=== PATIENT | female | born 1950 | race Caucasian/White ===

== ENCOUNTER 2019-01-20 17:28 | Inpatient (IN) | payer MEDICARE, OTHER ==
[~2019-01-20] VITALS: Ht 165.1 cm; Wt 93.4 kg
[~2019-01-20 17:28] MED LIST: SODI62.58 IV
[2019-01-22] MEDS ORDERED: Z GUARD REMEDY PASTE 57 GM TUBE TOP PRN (18:30)
[2019-01-22] MEDS ORDERED: MAGNESIUM HYDROXIDE 30 ML LIQUID UDC PO PRN (18:30)
--- NOTE | 2019-01-22 18:45 | NUR ---
Admitted from [facility] for right hip fracture s/p Im rodding on 01/18/19. Alert, oriented x4 Maltese speaking. With tolerable pain over right hip and leg area. Not in any form of distress. Oriented to unit and therapy. Dr. Shaw requested for medication reconciliation and acknowledged. Dr. Llanos aware of admission.
[2019-01-22] MEDS ORDERED: ONDA4TAB5 PO (19:06)
[2019-01-22] MEDS ORDERED: FLUT1BLS IH (19:06)
[2019-01-22] MEDS ORDERED: IPIL50VI IV (19:06)
[2019-01-22] MEDS ORDERED: DOCU250C14 PO (19:06)
[2019-01-22] MEDS ORDERED: HYDR-3980 PO (19:06)
[2019-01-22] MEDS ORDERED: RIVA10TA PO (19:06)
[2019-01-22] MEDS ORDERED: ALBU18HF2 INH (19:06)
[2019-01-22] MEDS ORDERED: GABA-534 PO (19:06)
[2019-01-22] MEDS ORDERED: ACET-73 PO (19:06)
[2019-01-22] MEDS ORDERED: TRAZ-214 PO (19:06)
[2019-01-22] MEDS ORDERED: NUT.237L36 PO (19:06)
[2019-01-22] MEDS ORDERED: MAG355OR18 PO (19:06)
[2019-01-22] MEDS ORDERED: SENN-175 PO (19:06)
[2019-01-22] MEDS ORDERED: LORA0.5T PO (19:06)
[2019-01-22] MEDS ORDERED: ISON300T19 PO (19:06)
[2019-01-22] MEDS ORDERED: PYRI50CA PO (19:06)
[2019-01-22] MEDS ORDERED: AMLO10TA7 PO (19:06)
[2019-01-22 19:20] VITALS: BP 152/78
[2019-01-22] MEDS ORDERED: ACETAMINOPHEN ES 500 MG TABLET PO PRN (20:00)
[2019-01-22] MEDS ORDERED: SENNOSIDES 1 TABLET PO PRN (20:00)
[2019-01-22] MEDS ORDERED: ALBUTEROL SULFATE 8 GM HFA.AER.AD INH PRN (20:00)
[2019-01-22] MEDS ORDERED: MAG HYDROX/AL HYDROX/SIMETH 30 ML LIQUID UDC PO PRN (20:00)
[2019-01-22] MEDS ORDERED: HYDROCODONE/APAP 10-325 MG TABLET PO PRN (20:00)
[2019-01-22] MEDS ORDERED: ONDANSETRON HCL 4 MG TABLET PO PRN (20:00)
[2019-01-22 20:23] VITALS: BP 158/81
[2019-01-22] MEDS: HYDROCODONE/APAP 10-325 MG TABLET PO PRN (20:58)
[2019-01-22] MEDS ORDERED: ACETAMINOPHEN 325 MG TABLET PO PRN (21:00)
[2019-01-22] MEDS ORDERED: ALBUTEROL SULFATE 2.5 MG/3 ML NEBU NEB PRN (21:30)
--- NOTE | 2019-01-22 21:38 | NUR ---
Received pt resting in bed. AAO x4. Macedonian speaking, able to make needs known. Family at bedside. No acute distress noted. C/o 10/10 pain on the right hip. Informed Dr. Llanos. New order for [place] 10-325 Q4H PRN. Carried out order. Pertinent assessment done. Oriented pt to unit and equipment. Safety measures maintained. Call light and personal belongings within reach. Will continue to monitor.
[2019-01-22 22:08] VITALS: BP 155/75
[2019-01-23] MEDS: HYDROCODONE/APAP 10-325 MG TABLET PO PRN ×4 (01:33→20:15)
[2019-01-23] MEDS: TRAZODONE 100 MG TABLET PO PRN (01:41)
[2019-01-23 04:59] VITALS: BP 143/69
[2019-01-23 07:54] VITALS: BP 142/59
[2019-01-23] MEDS: DOCUSATE SODIUM 100 MG CAPSULE PO SCH ×2 (08:43→17:31)
[2019-01-23] MEDS: ISONIAZID 100 MG TABLET PO SCH (08:43)
[2019-01-23] MEDS: PYRIDOXINE HCL 100 MG TABLET PO SCH (08:43)
[2019-01-23] MEDS: FLUTICASONE/VILANTEROL 1 EACH BLST.W.DEV IH SCH (08:44)
[2019-01-23] MEDS: GABAPENTIN 300 MG CAPSULE PO SCH (08:44)
[2019-01-23] MEDS: AMLODIPINE 10 MG TABLET PO SCH (08:44)
[2019-01-23] MEDS: GLUCERNA 1.2 1000ML LIQUID PO SCH ×2 (08:45→17:36)
[2019-01-23] MEDS ORDERED: DOCUSATE SODIUM 250 MG CAPSULE PO SCH (09:00)
[2019-01-23] MEDS ORDERED: ISONIAZID 300 MG TABLET PO SCH (09:00)
[2019-01-23] MEDS: LORAZEPAM 0.5 MG TABLET PO SCH ×2 (09:57→17:31)
[2019-01-23] MEDS ORDERED: SOD FERRIC GLUC COMPLX/SUCROSE 125 MG in IV NORMAL SALINE 100 ML IV SCH (14:00)
[2019-01-23 16:09] VITALS: BP 133/60
[2019-01-23] MEDS: RIVAROXABAN 10 MG TABLET PO SCH (17:36)
[2019-01-23 19:53] VITALS: BP 138/62
--- NOTE | 2019-01-23 22:27 | NUR ---
Received pt resting in bed. AAO x4. Khmer speaking, able to make needs known. Pt's at bedside. No acute distress noted. C/o 8/10 pain on the right hip. PRN pain med given as ordered. Safety measures maintained. Call light and personal belongings within reach. Will continue to monitor.
[2019-01-24] MEDS: HYDROCODONE/APAP 10-325 MG TABLET PO PRN ×4 (04:10→20:16)
[2019-01-24 05:51] VITALS: BP 138/76
[2019-01-24 07:16] LABS: BASOPHILS % (AUTO) 0.6 % (0.0-2.0); EOSINOPHILS # (AUTO) 0.1 K/uL (0.0-0.7); EOSINOPHILS % (AUTO) 0.9 % (0.0-7.0); HEMATOCRIT 24.7 % (31.2-41.9); HEMOGLOBIN 8.2 g/dL (10.9-14.3); LYMPHOCYTES # (AUTO) 1.2 K/uL (20.0-40.0); LYMPHOCYTES % (AUTO) 14.7 % (20.5-51.5); MEAN CORPUSCULAR HEMOGLOBIN 25.1 uug (24.7-32.8); MEAN CORPUSCULAR HGB CONC 33 g/dL (32.3-35.6); MEAN CORPUSCULAR VOLUME 75.7 fL (75.5-95.3); MONOCYTES # (AUTO) 0.6 K/uL (2.0-10.0); MONOCYTES % (AUTO) 7.9 % (0.0-11.0); NEUTROPHILS # (AUTO) 6.1 K/uL (1.8-8.9); NEUTROPHILS % (AUTO) 75.9 % (38.5-71.5); PLATELET COUNT (AUTO) 219 K/uL (179-408); RED BLOOD CELL COUNT(AUTO) 3.26 MIL/uL (3.63-4.92); WHITE BLOOD COUNT (AUTO) 8.1 K/uL (3.8-11.8)
[2019-01-24 07:29] LABS: THYROID STIMULATING HORMONE 3.459 mIU/mL (0.358-3.740)
[2019-01-24 07:46] LABS: BILIRUBIN,TOTAL 2.5 mg/dL (0.2-1.0); CREATININE 0.7 mg/dL (0.6-1.3); MAGNESIUM 1.8 mg/dL (1.8-2.4); PHOSPHOROUS 3.2 mg/dL (2.5-4.9); POTASSIUM 3.3 mmol/L (3.5-5.1); TOTAL PROTEIN, SERUM 6.1 g/dL (6.4-8.2)
[2019-01-24] MEDS: FLUTICASONE/VILANTEROL 1 EACH BLST.W.DEV IH SCH (08:33)
[2019-01-24] MEDS: GABAPENTIN 300 MG CAPSULE PO SCH (08:33)
[2019-01-24] MEDS: PYRIDOXINE HCL 100 MG TABLET PO SCH (08:33)
[2019-01-24] MEDS: DOCUSATE SODIUM 100 MG CAPSULE PO SCH ×2 (08:33→17:22)
[2019-01-24] MEDS: AMLODIPINE 10 MG TABLET PO SCH (08:33)
[2019-01-24] MEDS: LORAZEPAM 0.5 MG TABLET PO SCH ×2 (08:33→17:25)
[2019-01-24] MEDS: ISONIAZID 100 MG TABLET PO SCH (08:34)
--- NOTE | 2019-01-24 09:00 | NUR ---
Patient in bed, awake, alert, oriented x 3 not in any form of distress on room air. Administered due medications and given PRN medication for right hip pain and tolerated well. Assisted patient to the toilet transferred via wheelchair and then assisted back to the wheelchair for breakfast. Call light and frequently used items placed within reach.
[2019-01-24 09:14] VITALS: BP 133/64
[2019-01-24] MEDS: GLUCERNA 1.2 1000ML LIQUID PO SCH ×2 (09:15→17:25)
[2019-01-24] MEDS ORDERED: POTASSIUM CHLORIDE 20 MEQ TAB.PRT.SR PO ONE (15:00)
[2019-01-24 15:27] VITALS: BP 124/55
[2019-01-24] MEDS: RIVAROXABAN 10 MG TABLET PO SCH (17:25)
[2019-01-24 19:37] VITALS: BP 133/56
[2019-01-25] MEDS: HYDROCODONE/APAP 10-325 MG TABLET PO PRN ×4 (03:13→21:09)
[2019-01-25 05:38] VITALS: BP 130/68
--- NOTE | 2019-01-25 07:54 | NUR ---
Patient A&O x 4, Breathing is even and unlabored. NO acute distress. Vital signs taken and stable for patient. PRN pain medication administered and effective. Patient ambulatory with a walker and one person assist. Dressing site on Right hip intact and dry. Needs attended, safety measures in place, call light left at bed side, endorsed to next shift and will continue with care.
[2019-01-25 08:12] VITALS: BP 128/56
[2019-01-25] MEDS: FLUTICASONE/VILANTEROL 1 EACH BLST.W.DEV IH SCH (08:22)
[2019-01-25] MEDS: ISONIAZID 100 MG TABLET PO SCH (08:23)
[2019-01-25] MEDS: PYRIDOXINE HCL 100 MG TABLET PO SCH (08:23)
[2019-01-25] MEDS: DOCUSATE SODIUM 100 MG CAPSULE PO SCH ×2 (08:23→16:51)
[2019-01-25] MEDS: LORAZEPAM 0.5 MG TABLET PO SCH ×2 (08:24→16:51)
[2019-01-25] MEDS: AMLODIPINE 10 MG TABLET PO SCH (08:24)
[2019-01-25] MEDS: GABAPENTIN 300 MG CAPSULE PO SCH (08:24)
[2019-01-25] MEDS: GLUCERNA 1.2 1000ML LIQUID PO SCH ×2 (08:24→16:56)
--- NOTE | 2019-01-25 12:18 | NUR ---
INDIVIDUALIZE PLAN OF CARE
--- NOTE | 2019-01-25 15:32 | NUR ---
Pt received this morning AAOx3, assessed, no acute distress or SOB. VSS. Pain medication administered just prior to morning therapy. Pt reported effective. Pt compliant with all other medication administration and therapies as offered. Plan of care discussed. Dressings on right hip, dry and intact. Bed in locked and lowest position with side rails up x2 and bed alarm on. Call light and personal belongings placed within reach. Will continue to monitor for safety. All comfort and safety needs promptly attended to this shift.
[2019-01-25 16:23] VITALS: BP 146/70
[2019-01-25] MEDS: RIVAROXABAN 10 MG TABLET PO SCH (16:56)
[2019-01-25 20:57] VITALS: BP 133/61
--- NOTE | 2019-01-26 03:01 | NUR ---
Patient received in bed. AAO x3. No acute distress or SOB noted. Qatari speaking but can communicate in Kazakh a little. Able to make needs known. On room air. Complained of pain on right hip, rated 7/10 on numeric scale, [place] 10-325 mg given and was effective. All due medication given and well tolerated. Pain assessed and reassessed after pain medication. All needs attended promptly. Safety measures observed. Fall precaution maintained. Bed in low position, side rails up x2 for safety, brake and alarm on. Call light and personal belongings within reach. Continue to monitor and will endorse to the day shift nurse accordingly.
[2019-01-26] MEDS: HYDROCODONE/APAP 10-325 MG TABLET PO PRN ×2 (04:26→20:19)
[2019-01-26 06:53] VITALS: BP 150/64
[2019-01-26 08:00] VITALS: BP 126/63
[2019-01-26] MEDS: GABAPENTIN 300 MG CAPSULE PO SCH (08:37)
[2019-01-26] MEDS: DOCUSATE SODIUM 100 MG CAPSULE PO SCH ×2 (08:37→17:24)
[2019-01-26] MEDS: FLUTICASONE/VILANTEROL 1 EACH BLST.W.DEV IH SCH (08:37)
[2019-01-26] MEDS: ISONIAZID 100 MG TABLET PO SCH (08:38)
[2019-01-26] MEDS: AMLODIPINE 10 MG TABLET PO SCH (08:38)
[2019-01-26] MEDS: LORAZEPAM 0.5 MG TABLET PO SCH ×2 (08:38→17:24)
[2019-01-26] MEDS: CYANOCOBALAMIN 1000 MCG/ML VIAL IM SCH (09:00)
[2019-01-26] MEDS: PYRIDOXINE HCL 100 MG TABLET PO SCH (09:24)
[2019-01-26] MEDS: GLUCERNA 1.2 1000ML LIQUID PO SCH ×2 (09:30→17:27)
--- NOTE | 2019-01-26 11:47 | NUR ---
INTERDISCIPLINARY TEAM CONFERENCE
[2019-01-26 15:34] VITALS: BP 170/62
[2019-01-26] MEDS: RIVAROXABAN 10 MG TABLET PO SCH (17:26)
[2019-01-26 20:16] VITALS: BP 127/70
[2019-01-27] MEDS: HYDROCODONE/APAP 10-325 MG TABLET PO PRN ×4 (03:51→20:21)
--- NOTE | 2019-01-27 04:06 | NUR ---
resting in bed upon initial rounds.Patient S/P right hip IM nailing (01/22) right hip with 3 surgical sites with dressing clean dry and intact. VSS. Needs attended. On pain management, medicated with [place] 1 tab given as needed. Relief noted. Continent of bowel and bladder. Voiding well. OOB to the BR with walker with assist.No BM noted this shift. Fall precautions maintained. Slept throughout the shift. Call ibrahim within reach.
[2019-01-27 04:52] VITALS: BP 137/64
--- NOTE | 2019-01-27 08:00 | NUR ---
Pt. is resting in bed alert oriented x3-4 afghan speaking with a little hungarian. Pt. on room air. Surgical sites covered with dressings. Pt. denies any pain or discomfort. Pt. denies any SOB or difficulty breathing. Safety measures in place. Call light within reach. Will continue to monitor pt.
[2019-01-27 08:31] VITALS: BP 138/56
[2019-01-27] MEDS: GLUCERNA 1.2 1000ML LIQUID PO SCH ×2 (09:00→17:00)
[2019-01-27] MEDS: PYRIDOXINE HCL 100 MG TABLET PO SCH (09:01)
[2019-01-27] MEDS: LORAZEPAM 0.5 MG TABLET PO SCH ×2 (09:02→17:31)
[2019-01-27] MEDS: AMLODIPINE 10 MG TABLET PO SCH (09:02)
[2019-01-27] MEDS: GABAPENTIN 300 MG CAPSULE PO SCH ×2 (09:02→20:20)
[2019-01-27] MEDS: DOCUSATE SODIUM 100 MG CAPSULE PO SCH ×2 (09:02→17:32)
[2019-01-27] MEDS: CYANOCOBALAMIN 1000 MCG/ML VIAL IM SCH (09:03)
[2019-01-27] MEDS: ISONIAZID 100 MG TABLET PO SCH (09:03)
[2019-01-27] MEDS: FLUTICASONE/VILANTEROL 1 EACH BLST.W.DEV IH SCH (11:08)
[2019-01-27 16:48] VITALS: BP 141/66
[2019-01-27] MEDS: RIVAROXABAN 10 MG TABLET PO SCH (17:38)
--- NOTE | 2019-01-27 18:40 | NUR ---
Pt. resting in bed AAO. Throughout shift pt. had no acute distress or SOB. Surgical site cleaned and patted dry with normal saline and dressing on 3 areas of surgical site. [place] given PRN twice throughout my shift. VSS. Pt compliant with all routine medication administration and cooperative with therapies as offered. Bed in locked and lowest position with bed alarm on. Call light within reach. All comfort and safety needs met promptly this shift. Will continue to monitor and endorse to oncoming hobbing press operator.
[2019-01-27 21:09] VITALS: BP 115/52
[2019-01-28] MEDS: HYDROCODONE/APAP 10-325 MG TABLET PO PRN ×4 (01:38→17:23)
[2019-01-28 05:10] VITALS: BP 131/60
--- NOTE | 2019-01-28 05:45 | NUR ---
medicated with [place] for the pain on the right hip. aaox3-4 needs attended. call ibrahim within reach. quiet night. kept comfortable. will monitor patient.
[2019-01-28] MEDS: LORAZEPAM 0.5 MG TABLET PO SCH ×2 (07:50→17:22)
[2019-01-28] MEDS: AMLODIPINE 10 MG TABLET PO SCH (07:51)
[2019-01-28] MEDS: GABAPENTIN 300 MG CAPSULE PO SCH ×2 (07:52→20:17)
[2019-01-28] MEDS: ISONIAZID 100 MG TABLET PO SCH (07:52)
[2019-01-28] MEDS: ASCORBIC ACID 500 MG TABLET PO SCH (07:52)
[2019-01-28] MEDS: DOCUSATE SODIUM 100 MG CAPSULE PO SCH ×2 (07:53→17:22)
[2019-01-28] MEDS: PYRIDOXINE HCL 100 MG TABLET PO SCH (07:53)
[2019-01-28] MEDS: FLUTICASONE/VILANTEROL 1 EACH BLST.W.DEV IH SCH (07:57)
[2019-01-28] MEDS: CYANOCOBALAMIN 1000 MCG/ML VIAL IM SCH (07:57)
[2019-01-28 08:00] VITALS: BP 112/57
[2019-01-28] MEDS: GLUCERNA 1.2 1000ML LIQUID PO SCH ×2 (08:30→17:22)
[2019-01-28 16:43] VITALS: BP 107/49
[2019-01-28] MEDS: RIVAROXABAN 10 MG TABLET PO SCH (17:22)
--- NOTE | 2019-01-28 19:10 | NUR ---
Awake, in bed, denies any pain/discomforts at this time. at bedside. Safety measure and fall precaution maintained. Continue care as planned.
[2019-01-28 20:01] VITALS: BP 123/51
[2019-01-28] MEDS: TRAZODONE 100 MG TABLET PO PRN (20:17)
[2019-01-29] MEDS: HYDROCODONE/APAP 10-325 MG TABLET PO PRN ×3 (04:23→16:13)
[2019-01-29 05:03] VITALS: BP 153/53
--- NOTE | 2019-01-29 05:13 | NUR ---
Shift End Report: VS stable. Slept in between care. Medicated once for pain with relief. No further complaint presented. All needs attended and met. No significant event reported all night. Continue current rehab plan of care.
[2019-01-29 08:25] VITALS: BP 122/53
--- NOTE | 2019-01-29 09:30 | NUR ---
Received patient awake, alert x4. Assited to chaur, up with occupational therapy, tolerating well. Vian PRN given. For possible discharge today.
[2019-01-29] MEDS: ISONIAZID 100 MG TABLET PO SCH (09:59)
[2019-01-29] MEDS: FLUTICASONE/VILANTEROL 1 EACH BLST.W.DEV IH SCH (09:59)
[2019-01-29] MEDS: AMLODIPINE 10 MG TABLET PO SCH (10:00)
[2019-01-29] MEDS: GLUCERNA 1.2 1000ML LIQUID PO SCH ×2 (10:00→16:14)
[2019-01-29] MEDS: LORAZEPAM 0.5 MG TABLET PO SCH ×2 (10:00→16:13)
[2019-01-29] MEDS: DOCUSATE SODIUM 100 MG CAPSULE PO SCH ×2 (10:00→16:13)
[2019-01-29] MEDS: ASCORBIC ACID 500 MG TABLET PO SCH (10:00)
[2019-01-29] MEDS: GABAPENTIN 300 MG CAPSULE PO SCH (10:01)
[2019-01-29] MEDS: CYANOCOBALAMIN 1000 MCG/ML VIAL IM SCH (10:01)
[2019-01-29] MEDS: PYRIDOXINE HCL 100 MG TABLET PO SCH (10:02)
--- NOTE | 2019-01-29 14:00 | NUR ---
Discharge order obtained from Dr Llanos.
[2019-01-29] MEDS: RIVAROXABAN 10 MG TABLET PO SCH (16:14)
[2019-01-29 16:30] VITALS: BP 113/50
--- NOTE | 2019-01-29 16:56 | NUR ---
Discharge to home accompanied by Janette daughter, no pain noted. Not in any form of distress. Vital signs WNL. Discharge packet and education given to daughter and patient. Instructed to take medications as prescribed and follow up with Dr. Ferris on at 8:45 am. Instructed to take blood pressure prior to taking Norvasc. Routine discharge care done. Left via private transport.
== END 2019-01-29 16:53 | disposition home health service (06) | DRG 559 ==
PROVIDERS: ADMIT Physical Medicine & Rehabilitation Pain Medicine; ATTEND Physical Medicine & Rehabilitation Pain Medicine
DX: S72.141D Displaced intertrochanteric fracture of right femur, subsequent encounter for closed fracture with routine healing (principal); E43 Unspecified severe protein-calorie malnutrition; D68.59 Other primary thrombophilia; W19.XXXD Unspecified fall, subsequent encounter; E66.01 Morbid (severe) obesity due to excess calories; C76.8 Malignant neoplasm of other specified ill-defined sites; Z68.34 Body mass index [BMI] 34.0-34.9, adult; M19.90 Unspecified osteoarthritis, unspecified site; J44.9 Chronic obstructive pulmonary disease, unspecified; F41.9 Anxiety disorder, unspecified; G47.00 Insomnia, unspecified; D50.9 Iron deficiency anemia, unspecified; E87.6 Hypokalemia; I10 Essential (primary) hypertension; R26.9 Unspecified abnormalities of gait and mobility
CPT/HCPCS: 36415; 73502; 82652; 83550; 83735; 84100; 84443; 85025; A4663; J2916; J3420; J3490; Z7610